=== PATIENT | female | born 1990 | race African-American/Black ===

== ENCOUNTER 2020-07-02 16:45 | Emergency (ER) | payer OTHER ==
[~2020-07-02] VITALS: Ht 160 cm; Wt 49.0 kg
[2020-07-02] MEDS ORDERED: CLARITIN10 M2 PO (17:11)
[2020-07-02] MEDS ORDERED: ADDERALL 10 MG10 MG PO (17:11)
[2020-07-02 17:49] LABS: BASOPHILS 1.2 % (0.0-2.0); EOSINOPHILS 1.5 % (0.0-3.0); HEMATOCRIT 38.9 % (37.0-47.0); HEMOGLOBIN 13.5 gm/dL (12.0-15.0); LYMPHOCYTES 21.8 % (24.0-44.0); MCH 32.7 pg (26.0-34.0); MCHC 34.8 g/dL (28.0-37.0); MCV 94.1 fL (80.0-100.0); MONOCYTES 10.9 % (1.0-8.0); PLATELET COUNT 217 thou/uL (150-400); POLYS 64.6 % (36.0-66.0); RBC 4.14 mil/uL (4.20-5.00); RDW 13.3 % (10.5-14.5); WBC 6.2 thou/uL (4.0-11.0)
[2020-07-02 17:54] LABS: CALCIUM 8.9 mg/dL (8.5-10.1); CREATININE 0.8 mg/dL (0.6-1.0); POTASSIUM 3.8 mmol/L (3.5-5.1)
[2020-07-02 17:59] LABS: ALBUMIN 3.7 g/dL (3.4-5.0); TOTAL BILIRUBIN 0.2 mg/dL (0.2-1.0); TOTAL PROTEIN 7.4 g/dL (6.4-8.2)
[2020-07-02 18:05] LABS: APTT 25.9 Seconds (24.5-32.8); PROTIME 10.3 Seconds (9.3-11.4)
[2020-07-02 19:07] VITALS: BP 107/67
== END 2020-07-02 19:07 | disposition home or self-care (01) ==
LOC: ER 16:45
PROVIDERS: Physician Assistant
DX: M79.605 Pain in left leg (principal); Z71.1 Person with feared health complaint in whom no diagnosis is made; Z79.899 Other long term (current) drug therapy; Z88.0 Allergy status to penicillin; Z88.1 Allergy status to other antibiotic agents; Z88.2 Allergy status to sulfonamides